=== PATIENT | male | born 1955 | race Caucasian/White ===

== ENCOUNTER 2018-11-30 21:33 | Emergency (ER) | payer SELFPAY ==
[~2018-11-30] VITALS: Ht 170.2 cm; Wt 82.1 kg
[2018-11-30 21:37] VITALS: Ht 170.2 cm; Wt 82.1 kg
[2018-11-30 23:49] VITALS: BP 138/84
== END 2018-11-30 23:49 | disposition home or self-care (01) ==
LOC: ED 21:33
DX: R10.31 Right lower quadrant pain (principal); R11.0 Nausea; I10 Essential (primary) hypertension; V43.52XA Car driver injured in collision with other type car in traffic accident, initial encounter; Y93.I9 Activity, other involving external motion; Y92.413 State road as the place of occurrence of the external cause; Y99.8 Other external cause status